=== PATIENT | female | born 1980 | race Caucasian/White ===

== ENCOUNTER 2019-12-20 10:45 | Inpatient (IN) | payer OTHER ==
[~2019-12-20] VITALS: Ht 149.9 cm; Wt 86.2 kg
[~2019-12-20 10:45] MED LIST: AMOX1TAB12 PO; CEFPROZIL250 MG PO; IBUPROFEN800 MG PO; N
[2019-12-28] MEDS ORDERED: IBUPROFEN800 MG PO (06:50)
[2019-12-28] MEDS ORDERED: NEURONTIN600 MG PO (06:50)
== END 2019-12-28 10:58 | disposition home or self-care (01) | DRG 743 ==
LOC: O/R 12-26 07:00 → OB/GYN 12-26 09:05 → O/R 12-26 10:45 → OB/GYN 12-26 11:48
PROVIDERS: ADMIT Obstetrics & Gynecology
PROC: 0UT10ZZ Resection of Left Ovary, Open Approach (ICD-10-PCS; 2019-12-26)
PROC: 0UT90ZZ Resection of Uterus, Open Approach (ICD-10-PCS; principal; 2019-12-26 07:00)
PROC: 0UT70ZZ Resection of Bilateral Fallopian Tubes, Open Approach (ICD-10-PCS; 2019-12-26 07:00)
DX: D25.1 Intramural leiomyoma of uterus (principal); D25.2 Subserosal leiomyoma of uterus; N83.02 Follicular cyst of left ovary; N83.8 Other noninflammatory disorders of ovary, fallopian tube and broad ligament; N72 Inflammatory disease of cervix uteri